=== PATIENT | female | born 1970 | race Caucasian/White ===

== ENCOUNTER → 2017-08-13 | Outpatient (CLI) | payer OTHER | LOC: CIMAGING 10:26 | PROVIDERS: ATTEND Physician Assistant Medical | DX: R10.9 Unspecified abdominal pain (principal); N20.0 Calculus of kidney | CPT/HCPCS: 74176-PO ==

== ENCOUNTER 2018-06-10 12:32 | Emergency (ER) | payer OTHER ==
--- NOTE | 2018-06-10 13:29 | EDPHY ---
H & P Stated Complaint: fell dogs pulled over hit l forehead/lac chin/denies loc/neck pain or other - Personal History LMP (Females 10-55): 15-21 Days Ago Current Tetanus Diphtheria and Acellular Pertussis (TDAP): Yes - Medical/Surgical History Hx Asthma: No Hx Chronic Respiratory Disease: No Hx Diabetes: No Hx Cardiac Disease: No Hx Renal Disease: No Hx Cirrhosis: No Hx Alcoholism: No Hx HIV/AIDS: No Hx Splenectomy or Spleen Trauma: No Other PMH: endometriosis; kidney stones - Social History Smoking Status: Never smoked Time Seen by Provider: 06/10/18 13:15 HPI/ROS: CHIEF COMPLAINT: Head injury HISTORY OF PRESENT ILLNESS: 48-year-old female arrives via private vehicle, not a trauma activation, no history of anticoagulant use, complaining of head injury and forehead laceration after she was walking heard 3 dogs who suddenly ran quickly in causing her to fall forward impacting her left frontal region against a rock. No loss of consciousness. She is complaining of non thunderclap headache which did not precede the injury. No nausea or vomiting. No midline C-spine pain. No peripheral paresthesia, weakness, numbness. PRIMARY CARE PROVIDER: REVIEW OF SYSTEMS: 10 systems reviewed and negative with the exception of the elements mentioned in the history of present illness PAST MEDICAL/SURGICAL HISTORY: no anticoagulant use, no relevant medical/ surgical history. Tetanus up-to-date SOCIAL HISTORY: denies alcohol use at time of incident PHYSICAL EXAM 1) GENERAL: Well-developed, well-nourished, alert and oriented. Appears to be in no acute distress. Answering questions appropriately. 2) HEAD: Normocephalic, left frontal laceration measuring 3 cm 3) HEENT: Pupils equal, round, reactive to light bilaterally. Negative Horners. Nasopharynx, oropharynx, clear. No deformity or angulation of nose. No septal hematoma. No rhinorrhea. No oral trauma. Ears bilaterally with normal tympanic membranes. No hemotympanum. No fluid or blood in the external auditory canal. No raccoon eyes. No Arshad sign. Abrasion to left chin with no underlying osseous discomfort. No intraoral bleeding. Teeth are normally aligned with no gross malocclusion, TMJ bilaterally nontender, facial bones nontender including the zygomatic arch, maxilla mandible. 4) NECK: No cervical collar is on. Posterior cervical spine is nontender, no stepoff, no effusion. Full range of motion which does not elicit any midline cervical spine pain, no posterior midline tenderness, no step-off. 5) LUNGS: Clear to auscultation bilaterally, no wheezes, no rhonchi, no retractions. No obvious signs of trauma. No chest wall pain. No flaring, no grunting. Moving symmetrically. No crepitus. 6) HEART: [Regular rate and rhythm, 7) ABDOMEN: No guarding, no rebound, no focal tenderness, no peritoneal signs, no signs of trauma, no ecchymosis 8) MUSCULOSKELETAL: Moving all extremities, no focal areas of tenderness, no obvious trauma. 9) BACK: No midline vertebral tenderness, no fluctuance, no step-off, no obvious trauma, no visual or palpable abnormality. 10) SKIN: No laceration. No abrasion 11) CERVICAL SPINE NEURO EXAM: Bilateral reflexes of biceps triceps brachioradialis intact equal bilaterally Motor exam: deltoid, biceps, wrist extension, tricep, finger extension, finger flexion, finger abduction intact equal bilaterally 5/5 DIFFERENTIAL DIAGNOSIS: Not necessarily in any particular order, my differential diagnosis includes, but is not limited to, concussion, skull fracture, intraparenchymal contusion, subarachnoid, subdural and epidural hematoma. The patient understands that this diagnosis is provisional and can never be 100% accurate. (Nely Flannery) Constitutional: Initial Vital Signs Temperature (C) 37.3 C 06/10/18 12:40 Heart Rate 70 06/10/18 12:40 Respiratory Rate 18 06/10/18 12:40 Blood Pressure 104/61 06/10/18 12:40 O2 Sat (%) 98 06/10/18 12:40 O2 Delivery Mode Room Air Allergies/Adverse Reactions: gluten Allergy (Verified 06/10/18 12:39) Home Medications: Medication Instructions Recorded Progesterone, Micronized 100 mg PO 09/10/15 [Progesterone] Aspirin 81mg (*) 06/10/18 Medical Decision Making - Diagnostics Imaging Results: Imaging Impressions Head CT 06/10/18 13:22 Impression: 1. Normal CT brain without contrast. 2. Left frontal scalp laceration. 3. No skull fracture. Findings and recommendations discussed with Emergency Department physician, Gabriel Flannery PA-C at 1346 hours on June 10, 2018. Final report concurs with initial preliminary interpretation. Images reviewed myself (Nely Flannery) Procedures: Procedure: Laceration repair. I explained the indications, risks and benefits for both laceration repair and anesthetic administration. Verbal consent was obtained from the patient . The laceration on the left frontal region was anesthetized using 0.5% bupivicaine with epinephrine . After anesthetic administered the patient was observed for a period of time and had no apparent adverse effects. The wound was cleaned, prepped, draped in normal sterile fashion and explored to its base. No foreign body seen, no foreign bodies palpated. There were no deep structures involved. The wound was repaired with 7 simple interrupted 6 0 Prolene suture. The wound repair was complex. The procedure was performed by myself. Patient has been informed that scarring will occur, although efforts have been made to minimize this. (Nely Flannery) ED Course/Re-evaluation: 1:20 p.m.: Patient has negative Agency head and C-spine decision-making tools. She requests CT imaging. Indications risks benefits discussed with patient and she consents. I believe her to have decision-making capacity. Will plan on primary closure of the wound. See procedure note. 1:59 p.m.: CT imaging is negative per Radiology interpretation. Images reviewed myself. She has been re-evaluated with serial exams She is answering questions appropriately. Plan will be discharge home, follow-up for suture removal, usual and customary head injury and wound precautions and instructions provided. She feels comfortable being discharged. Care of patient under supervision of secondary supervising physician Dr Scott French. (Nely Flannery) I did not see this patient while she was in the emergency department. However her care was discussed with the PA while the patient was in the department. I agree with treatment plan and management (Scott French) Departure - Departure Disposition: Home, Routine, Self-Care Clinical Impression: Walking an animal, Chin abrasion, non-infected Laceration of forehead Qualifiers: Encounter type: initial encounter Qualified Code(s): S01.81XA - Laceration without foreign body of other part of head, initial encounter Head injury Qualifiers: Encounter type: initial encounter Qualified Code(s): S09.90XA - Unspecified injury of head, initial encounter Condition: Good Instructions: Care For Your Stitches (ED), Laceration (ED), Head Injury (ED), Abrasion (ED) Additional Instructions: ALTHOUGH THERE IS NO EVIDENCE OF SERIOUS HEAD INJURY AT THIS TIME, DELAYED SIGNS CAN APPEAR 24 TO 48 HOURS AFTER INJURY. PLEASE RETURN TO THE EMERGENCY DEPARTMENT (ED) IMMEDIATELY IF YOU HAVE INCREASED HEADACHE, PERSISTENT HEADACHE , VOMITING, WEAKNESS, CONFUSION OR VISUAL PROBLEMS. WE RECOMMEND THAT YOU DO NOT RESUME CONTACT SPORTS OR ACTIVITIES THAT TAKE COORDINATION OR BALANCE SUCH SKIING OR RIDING A BICYCLE UNTIL CLEARED TO DO SO BY YOUR DOCTOR OR BY A NEUROLOGIST. Referrals: Return, to the ER in 5 days for suture removal [Other] - As per Instructions
[2018-06-10 14:30] VITALS: BP 105/78
== END 2018-06-10 14:29 | disposition home or self-care (01) ==
PROC: 0HQ1XZZ Repair Face Skin, External Approach (ICD-10-PCS; principal; 2018-06-10)
DX: S01.81XA Laceration without foreign body of other part of head, initial encounter (principal); W01.198A Fall on same level from slipping, tripping and stumbling with subsequent striking against other object, initial encounter; Y93.K1 Activity, walking an animal